=== PATIENT | female | born 1985 | race Caucasian/White ===

== ENCOUNTER 2019-12-21 17:55 | Observation (INO) ==
[2019-12-21] MEDS ORDERED: ZOFRAN INJ 4 MG VIAL IVP PRN (18:40)
[2019-12-21] MEDS ORDERED: NORCO 5/325 MG TAB PO PRN (18:40)
--- NOTE | 2019-12-21 18:59 | DR.H&P ---
H&P - History & Physical for Day of: H&P Date: 12/21/19 - Chief Complaint Chief Complaint: RIGHT UPPER ABDOMINAL PAIN, DARK BROWN URINE, NAUSEA & VOMITING - History of Present Illness History of Present Illness: PT IS 34 WF DIRECT ADMIT FROM DR ZAPATA OFFICE WITH CO NEW ONSET RIGHT UPPER ABDOMINAL PAIN WITH N/V SINCE WEDNESDAY. PT REPORTS ~5LBS WEIGHT LOSS DUE TO FOOD INTOLERANCE. PT CO URINE IS NOW DARK BROWN IN COLOR. PT HAD UA WITH BILIURIA, RIGHT UPPER ABDOMINA L TENDERNESS. PT DENIES ANY PMH OF DM OR HTN. PT DENIES ANY SYMPTOMS OF FEVER, CCC OR COVID 19 RESPIRATORY SYMPTOMS. PT HAD OUTPT LABS WITH ELEVATED LFT'S AND LIPASE. PT ADMITTED FOR TREATMENT OF ACUTE CHOLECYSTITIS, PANCREATITIS. - Past Medical History Past Medical History: denies: Diabetes, GERD, Hypertension - Family History Family Medical History: Diabetes Mellitus, Hypertension - Social History Does patient currently use any type of tobacco product: No Have you used tobacco products in the last 12 months: No Type of Tobacco Use: None Does any household member use tobacco: No Alcohol Use: None Drug Use: None Risks, benefits, and alternatives of opioids discussed: No - Review of Systems Constitutional: No Symptoms Reported Eyes: No Symptoms Reported ENT: No Symptoms Reported Respiratory: No Symptoms Reported Cardiovascular: No Symptoms Reported Gastrointestinal: Nausea, Vomiting, Abdominal Pain, Diarrhea Genitourinary: Other (DISCOLORED URINE) Musculoskeletal: Back Pain Skin: No Symptoms Reported Neurological: No Symptoms Reported Oriented: Normal Eyes: Normal Ear: Normal Nose: Normal Throat: Normal Respiratory: RLL Diminished, LLL Diminished Cardiovascular: Normal : Normal Palpation: Normal Tenderness: RUQ Skin: Decreased Turgur Psychiatric: Normal Mood Description: Calm - Assessment/Plan (1) Acute cholecystitis Status: Acute Plan: ADMIT, NPO AFTER MIDNIGHT. GB US, ACUTE HEPATITIS PAIN. PAIN AND NAUSEA CONTROL, IV HYDRATION. CONSULT DR DUENAS POST GB US RESULTS (2) Acute pancreatitis Status: Acute
[2019-12-21] MEDS ORDERED: PROTONIX INJ 40 MG VIAL ONE (20:30)
[2019-12-21] MEDS ORDERED: NS 1000 ML 1,000 ML ONE (20:30)
[2019-12-21] MEDS: PROTONIX INJ 40 MG VIAL IVP SCH (20:38)
[2019-12-21] MEDS: NS 1000 ML 1,000 ML IV SCH (20:38)
[2019-12-21 21:46] VITALS: BMI 26.6
[2019-12-21 23:08] LABS: BILIRUBIN,URINE 2+ (NEGATIVE); BLOOD/HEMOGLOBIN,URINE 5+ (NEGATIVE); GLUCOSE, URINE NEGATIVE (NEGATIVE); KETONES,URINE 3+ (NEGATIVE); LEUKOCYTE ESTERASE ,URINE 1+ (NEGATIVE); NITRITES,URINE NEGATIVE (NEGATIVE); PROTEIN,URINE 1+ (NEGATIVE); UROBILINOGEN,URINE 3+ (NORMAL)
[2019-12-21 23:11] LABS: APPEARANCE,URINE CLEAR (CLEAR); COLOR,URINE AMBER (YELLOW)
[2019-12-21 23:20] LABS: BACTERIA,URINE TRACE /HPF (NEGATIVE); CALCIUM OXALATE CRYSTALS,UR MANY /HPF (NEGATIVE); RBC,URINE 0-2 /HPF (0-3); SQUAMOUS EPITHELIAL CELL,UR FEW /HPF (NEGATIVE)
--- NOTE | 2019-12-22 05:57 | RAD ---
HISTORYRUQ PAIN HX: IBS SX: C-SECTIONSTUDYKUBCOMPARISONNoneFINDINGSEvaluation of the abdomen demonstrates a normal bowel gas manny demetra. No pathological soft tissue mass or calcification can be observed. The bony structures are ry ssly intact.IMPRESSIONNo evidence for acute abdominal pathology identified.Electronically signed by: ROLY STEELE (Dec 22, 2019 05:56:19)
[2019-12-22 06:06] LABS: ALANINE AMINOTRANSFERASE 245 Units/L (12-78); ALKALINE PHOSPHATASE 137 Units/L (46-116); AMYLASE 41 Units/L (25-115); ASPARTATE AMINO TRANSFERASE 94 Units/L (15-37); BLOOD UREA NITROGEN 9 mg/dL (7-18); CARBON DIOXIDE 26.3 mmol/L (21-32); CHLORIDE 109 mmol/L (98-107); COR CA(FOR HYPOALB) 8.8 mg/dL (8.5-10.1); CREATININE 0.76 mg/dL (0.55-1.02); LIPASE 304 Units/L (73-393); SODIUM 144 mmol/L (136-145); TOTAL PROTEIN 6.5 g/dL (6.4-8.2); eGFR NON BLACK RACES > 60 (>60)
[2019-12-22 06:15] LABS: BASOPHILS # (AUTO) 0.1 X10^3/uL (0.0-0.1); BASOPHILS % (AUTO) 0.9 % (0.2-1.0); EOSINOPHILS # (AUTO) 0.1 x10^3/uL (0.0-0.2); EOSINOPHILS % (AUTO) 1.5 % (0.9-2.9); HEMOGLOBIN 12.9 g/dL (12.0-16.0); LYMPHOCYTES # (AUTO) 1.6 X10^3/uL (1.3-2.9); LYMPHOCYTES % (AUTO) 29.6 % (21.0-51.0); MEAN CORPUSCULAR HEMOGLOBIN 29.6 pg (27.0-34.0); MEAN CORPUSCULAR HGB CONC 33.1 g/dL (33.0-35.0); MEAN CORPUSCULAR VOLUME 89.5 fL (80.0-100.0); MONOCYTES # (AUTO) 0.6 x10^3/uL (0.3-0.8); MONOCYTES % (AUTO) 10.5 % (0.0-13.0); NEUTROPHILS # (AUTO) 3.1 x10^3/uL (2.2-4.8); NEUTROPHILS % (AUTO) 57.5 % (42.0-75.0); PLATELET COUNT 388 X10^3/uL (150.0-450.0); RED BLOOD COUNT 4.35 X10^6/uL (3.5-5.4); RED CELL DISTRIBUTION WIDTH 14.1 % (11.6-16.5); WHITE BLOOD COUNT 5.4 X10^3/uL (3.6-10.0)
[2019-12-22] MEDS: NS 1000 ML 1,000 ML IV SCH ×2 (06:33→13:31)
[2019-12-22] MEDS: PROTONIX INJ 40 MG VIAL IVP SCH (08:08)
[2019-12-22] MEDS ORDERED: VERSED ONE (09:37)
[2019-12-22] MEDS ORDERED: QUELICIN (OR ANECTINE) ONE (09:37)
[2019-12-22] MEDS ORDERED: XYLOCAINE 2 % (PLAIN) ONE (09:37)
[2019-12-22] MEDS ORDERED: NEOSTIGMINE INJ ONE (09:37)
[2019-12-22] MEDS ORDERED: SUPRANE ONE (09:37)
[2019-12-22] MEDS ORDERED: LTA KIT LIDOCAINE 4% ONE (09:37)
[2019-12-22] MEDS ORDERED: NORCURON INJ 10 MG VIAL ONE (09:37)
[2019-12-22] MEDS ORDERED: ZOFRAN INJ 4 MG VIAL ONE (09:37)
[2019-12-22] MEDS ORDERED: ROBINUL ONE (09:37)
[2019-12-22] MEDS ORDERED: TORADOL 30 MG VIAL ONE (09:37)
--- NOTE | 2019-12-22 12:24 | US ---
HISTORYRUQ PAINSTUDYGALL BLADDERCOMPARISON[None.]TECHNIQUE[Right upper quadrant sonogram complete]FINDINGS[The liver appears echogenic and measures up to 15.2 cm. Portal vein has hepatopetal flow. Hepatic artery appears patent. Hepatic vein has normal flow.Multiple small cholelithiasis are present with posterior acoustic shadowing. A positive Howe's sign is noted. There is wall thickening of the gallbladder at 3-4 mm. Common duct normal at 4 mm.Right kidney measures 12 cm and appears within normal limits.]Pancreas is obscured by bowel gas.Proximal aorta measures normal.IMPRESSION[Cholelithiasis with wall thickening and positive Howe's sign suspicious for acute cholecystitis.Hepatic steatosis.]Electronically signed by: Stas Brewer (Dec 22, 2019 12:21:55)
[2019-12-22 12:39] LABS: SERUM PREGNANCY TEST, QUAL NEGATIVE <10 mIU/mL
[2019-12-22] MEDS: LEVAQUIN PREMIX IV 500 MG 500 MG/100 ML BAG IV SCH (12:49)
[2019-12-22] MEDS ORDERED: BACTROBAN TOPICAL OINT ONE (12:50)
[2019-12-22] MEDS ORDERED: FENTANYL INJ 250 mcg ONE (12:51)
[2019-12-22] MEDS ORDERED: DECADRON INJ ONE (12:51)
[2019-12-22] MEDS ORDERED: LR 1000 ML IV 1,000 ML IV ONE (13:31)
[2019-12-22] MEDS ORDERED: DILAUDID INJ IVP PRN ×2 (14:38→14:41)
[2019-12-22] MEDS ORDERED: PHENERGAN INJ 25 MG IM PRN (14:38)
[2019-12-22] MEDS ORDERED: REGLAN INJ 10 MG VIAL IVP PRN (14:38)
[2019-12-22] MEDS ORDERED: ZOFRAN INJ 4 MG VIAL IVP PRN (14:38)
[2019-12-22] MEDS ORDERED: BENADRYL INJ 50 MG VIAL IVP PRN (14:38)
[2019-12-22] MEDS: D5 1/2 NS 1000 ML 1,000 ML IV SCH (15:54)
[2019-12-22] MEDS: TORADOL 30 MG VIAL IVP PRN (20:35)
[2019-12-23] MEDS: D5 1/2 NS 1000 ML 1,000 ML IV SCH ×3 (01:00→09:23)
[2019-12-23] MEDS: TORADOL 30 MG VIAL IVP PRN ×2 (02:45→09:25)
[2019-12-23 06:31] LABS: BASOPHILS % (AUTO) 0.4 % (0.2-1.0); EOSINOPHILS % (AUTO) 0.1 % (0.9-2.9); HEMOGLOBIN 11.9 g/dL (12.0-16.0); LYMPHOCYTES # (AUTO) 1.1 X10^3/uL (1.3-2.9); LYMPHOCYTES % (AUTO) 13.9 % (21.0-51.0); MEAN CORPUSCULAR HEMOGLOBIN 29.7 pg (27.0-34.0); MEAN PLATELET VOLUME 8.1 fL (7.4-11.0); MONOCYTES # (AUTO) 0.7 x10^3/uL (0.3-0.8); NEUTROPHILS # (AUTO) 5.8 x10^3/uL (2.2-4.8); NEUTROPHILS % (AUTO) 76.6 % (42.0-75.0); PLATELET COUNT 315 X10^3/uL (150.0-450.0); WHITE BLOOD COUNT 7.5 X10^3/uL (3.6-10.0)
[2019-12-23 06:47] LABS: ALANINE AMINOTRANSFERASE 224 Units/L (12-78); ALBUMIN 2.5 g/dL (3.4-5.0); ALKALINE PHOSPHATASE 119 Units/L (46-116); ASPARTATE AMINO TRANSFERASE 104 Units/L (15-37); BLOOD UREA NITROGEN 7 mg/dL (7-18); CARBON DIOXIDE 25.1 mmol/L (21-32); CHLORIDE 107 mmol/L (98-107); COR CA(FOR HYPOALB) 9.2 mg/dL (8.5-10.1); COR NA(FOR HYPERGLY) 141 mmol/L (136-145); CREATININE 0.66 mg/dL (0.55-1.02); SODIUM 140 mmol/L (136-145); TOTAL PROTEIN 5.6 g/dL (6.4-8.2); eGFR NON BLACK RACES > 60 (>60)
[2019-12-23] MEDS ORDERED: POTASSIUM CHL 60 MEQ/NS 0.45% 500 ML IV PRN (08:48)
[2019-12-23] MEDS ORDERED: MAGNESIUM SULFATE 1 GRAM/100 mL PREMIX 1 GM/100 ML BAG IV PRN (08:48)
[2019-12-23] MEDS ORDERED: POTASSIUM CHL 40 MEQ/NS 0.45% 500 ML IV PRN (08:48)
[2019-12-23] MEDS ORDERED: K-RIDER 10 MEQ/NS 100 ML 10 MEQ/100 ML BAG IV PRN (08:48)
[2019-12-23] MEDS ORDERED: POTASSIUM CHLORIDE LIQ 20 MEQ UDC PO PRN (08:48)
[2019-12-23] MEDS ORDERED: K-DUR TAB 20 MEQ PO PRN (08:48)
[2019-12-23] MEDS ORDERED: KLOR-CON PO PRN (08:48)
[2019-12-23] MEDS ORDERED: MICRO K EXTEN CAP 10 MEQ PO PRN (08:48)
[2019-12-23] MEDS ORDERED: K-DUR TAB 20 MEQ PO ONE (08:59)
[2019-12-23] MEDS ORDERED: POTASSIUM CHLORIDE LIQ 20 MEQ UDC ONE (09:06)
[2019-12-23] MEDS: PROTONIX INJ 40 MG VIAL IVP SCH (09:23)
[2019-12-23] MEDS: LEVAQUIN PREMIX IV 500 MG 500 MG/100 ML BAG IV SCH (09:23)
[2019-12-23 12:25] VITALS: BP 135/81
[2019-12-25 06:32] LABS: HEPATITIS B SURFACE ANTIGEN Negative (Negative)
== END 2019-12-23 13:35 | disposition home or self-care (01) ==
LOC: MED/SURG
PROVIDERS: ADMIT Internal Medicine; ATTEND Internal Medicine
DX: K76.0 Fatty (change of) liver, not elsewhere classified; K82.8 Other specified diseases of gallbladder; K85.90 Acute pancreatitis without necrosis or infection, unspecified; R11.12 Projectile vomiting; K80.60 Calculus of gallbladder and bile duct with cholecystitis, unspecified, without obstruction; R94.5 Abnormal results of liver function studies; R10.11 Right upper quadrant pain
CPT/HCPCS: 36415; 74000; 74018; 76705; 80053; 80074; 81001; 82150; 83690; 84703; 85025; 96360; 96361; 96374; A4216; A4222; C9113; G0378; J0330; J1100; J1885; J1956; J2250; J2405; J2710; J3010; J3490; J7030; J7120; S5010

== ENCOUNTER 2024-11-06 12:01 | Inpatient (IN) ==
[2024-11-06] MEDS: DUONEB 0.5 MG/3 MG (3 mL) NEB SCH (12:46)
[2024-11-06] MEDS: NS 1,000 ML IV 1,000 ML IV SCH (13:00)
[2024-11-06] MEDS: ZITHROMAX INJ 500 MG VIAL 500 MG in NS 250 ML IV 250 ML IV SCH (13:01)
[2024-11-06] MEDS: LOVENOX INJ 40 MG SYR SC SCH (13:03)
[2024-11-06] MEDS: SOLU-Medrol 40 MG VIAL IVP SCH (13:04)
[2024-11-06] MEDS: PROTONIX INJ 40 MG VIAL IVP SCH (13:06)
[2024-11-06 13:30] LABS: MAGNESIUM 2.1 mg/dL (2.0-2.9)
--- NOTE | 2024-11-06 13:40 | DR.H&P ---
H&P History & Physical for Day of: H&P Date: 11/06/24 Chief Complaint Chief Complaint: SOB, HEART RACING, DRY COUGH History of Present Illness History of Present Illness: PT IS 39WF, DIRECT ADMIT FROM DR WARNER OFFICE DUE TO ABNORMAL OUTPT FINDINGS. PT CO ONSET SOB LAST WEEK. PT REPORTS SHE THOUGHT SHE HAD BRONCHITIS BECAUSE SHE RECENTLY STARTED SMOKING. PT DOES HAVE PMH OF ANEMIA AND MENORRHAGIA. 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 PT HR 134 IN OFFICE. PT STATES SHE HAS BEEN TAKING DUO NEBS WITH SOME IMPROVEMENT. PT OUTPT LABS REVEALED HYPOXIA ON ABG AND ELEVATED DDIMER. PT ADMITTED FOR EVALUATION AND TREATMENT OF ACUTE ILLNESS. Past Medical History Past Medical History: denies Diabetes, GERD or Hypertension Past Surgical History Surgical History: and Cholecystectomy Family History Family Medical History: Cancer Social History Does patient currently use any type of tobacco product: No Have you used tobacco products in the last 12 months: No Type of Tobacco Use: None Alcohol Use: None Drug Use: None Medications Home Medications: Home Medications Medication Instructions Recorded Confirmed Type albuterol sulfate 90 mcg/actuation 2 puff inhalation Q ID PRN 11/06/24 11/06/24 History aerosol inhaler metoprolol tartrate 25 mg tablet 25 mg PO BID 11/06/24 11/06/24 History pantoprazole 40 mg tablet,delayed 40 mg PO QDAY 11/06/24 History release Allergies Allergies Allergy/AdvReac Type Severity Reaction Status Date / Time No Known Drug Allergies Allergy Verified 12/21/19 21:40 Review of Systems Constitutional: Weakness Eyes: No Symptoms Reported ENT: No Symptoms Reported Respiratory: Shortness of Breath Cardiovascular: Palpitations Gastrointestinal: No Symptoms Reported Genitourinary: No Symptoms Reported Musculoskeletal: No Symptoms Reported Skin: No Symptoms Reported Neurological: No Symptoms Reported Physical Exam Vital Signs: Vital Signs Temperature 97.6 F Pulse Rate [Left Radial] 123 Pulse Rate 123 Respiratory Rate 20 Respiratory Rate 20 Blood Pressure [Right Arm] 122/86 Blood Pressure 135/81 Blood Pressure 135/81 O2 Sat by Pulse Oximetry 97 O2 Sat by Pulse Oximetry 96 Oriented: Normal Eyes: Normal Ear: Normal Nose: Normal Throat: Dry Respiratory: Diminished Throughout Cardiovascular: Tachycardia and Edema Auscultation: Bowel Sounds: Normal Tenderness: Normal Skin: Normal Musculoskeletal: Normal Psychiatric: Anxiety Mood Description: Anxious Affect: Anxious Speech Pattern: Clear and Appropriate Assessment/Plan (1) SOB (shortness of breath) on exertion: Status: Acute Plan: ADMIT, RESP CONSULT SUPPLEMENTAL O2, CARDIAC MONITORING CTA CHEST RO PE, IV SOLU MEDROL AND IV ATBX (2) Acute bronchitis: Status: Acute (3) Anemia: Status: Acute
[2024-11-06 13:57] LABS: BILIRUBIN,URINE NEGATIVE (NEGATIVE); BLOOD/HEMOGLOBIN,URINE NEGATIVE (NEGATIVE); GLUCOSE, URINE NEGATIVE (NEGATIVE); KETONES,URINE 1+ (NEGATIVE); LEUKOCYTE ESTERASE ,URINE 1+ (NEGATIVE); NITRITES,URINE NEGATIVE (NEGATIVE); PROTEIN,URINE 2+ (NEGATIVE); UROBILINOGEN,URINE NORMAL (NORMAL)
[2024-11-06 14:05] LABS: APPEARANCE,URINE SLIGHTLY HAZY (CLEAR); BACTERIA,URINE 1+ /HPF (NEGATIVE); COLOR,URINE YELLOW (YELLOW); RBC,URINE 0-2 /HPF (0-3); SQUAMOUS EPITHELIAL CELL,UR RARE /HPF (NEGATIVE)
--- NOTE | 2024-11-06 14:54 | CT ---
EXAMINATION: CTA, CHEST HISTORY: > D-DIMER , HYPOXIA; . COMPARISON: None. TECHNIQUE: Routine axial imaging of the chest was performed. CT angiography of the pulmonary arteries was performed with maximum intensity projection images and volume rendered images on a workstation. The above CT scan was done with automated exposure control and the mA and kV was adjusted to obtain quality gee ges according to patient size. FINDINGS: Lungs: Dependent atelectasis. No acute infiltrates, suspicious pulmonary nodules, interstitial changes or ground-glass opacities. Central Airways: No obstructing endobronchial lesions Pleura: No pleural effusion or pneumothorax Thoracic Aorta: Ectasia. No dissection. Main Pulmonary Trunk: Enlarged measuring 3.7 cm suggesting pulmonary arterial hypertension. There is pulmonary embolus in segmental and subsegmental branches to the upper lobes, right middle lobe, lingula and lower lobes. No saddle embolus or right heart strain Lymph Nodes: No pathologic hilar, axillary or mediastinal adenopathy Heart/Pericardium: Normal heart size. No pericardial effusion Liver: Fatty liver. No acute findings. GB/Biliary: Cholecystectomy. No dilated ducts Spleen: Normal size and density Pancreas: No acute findings as visualized Adrenal Glands: No mass Kidneys no hydronephrosis. Abdominal Aorta: Tapers and enhances normally. Retroperitoneum: No pathologically enlarged lymph nodes Bowel/Peritoneal Cavity: No acute findings as visualized Osseous Structures: Degenerative changes in the thoracolumbar spine. No acute findings or bony lesions. Other: None IMPRESSION: There is acute pulmonary embolus in the segmental and subsegmental branches of the upper lobes, right middle lobe, lingula and lower lobe branches. No CTA evidence for saddle embolus or right heart strain. No CTA evidence for aortic aneurysm or dissection. The above CT scan was done with automated exposure control and the mA and kV was adjusted to obtain quality images according to patient size THIS IS AN ELECTRONICALLY VERIFIED FINAL REPORT 11/06/2024 2:51 PM - Electronically signed by Jose Borges MD
[2024-11-06] MEDS: NS 100 ML IV 100 ML with VENOFER 400 MG IV ONE (15:42)
[2024-11-06] MEDS: HEMOCYTE PLUS PO SCH (15:43)
[2024-11-06] MEDS: HEPARIN SODIUM IN D5W 25,000 UNITS/500 ML BAG IV PRN (16:23)
[2024-11-06] MEDS: OMNIPAQUE 350 mg/mL 100 mL BTL 100 ML ONE (16:26)
[2024-11-06] MEDS: DUONEB 0.5 MG/3 MG (3 mL) NEB ONE (16:26)
[2024-11-06] MEDS: VITAMIN B-12 INJ IM ONE (16:33)
[2024-11-06 16:51] LABS: HEMATOCRIT 29.2 % (36.0-47.0); HEMOGLOBIN 8.2 g/dL (12.0-16.0)
[2024-11-06 16:59] LABS: INR 1.17 (0.8-1.3)
--- NOTE | 2024-11-06 17:10 | VAS ---
EXAM: LOWER EXT VENOUS, UNILATERAL HISTORY: LLE SWELLING, PAIN; LLE SWELLING/PAIN COMPARISON: None. TECHNIQUE: G rayscale and color Doppler imaging of the left lower extremity using compression and augmentation techniques focused to the deep venous system. FINDINGS: The study is positive for DVT within a segment of the left popliteal vein. This segment demonstrates near occlusive thrombus with abnormal compressibility and augmentation of flow. Flow is demonstrated below this level of interest within the posterior tibial vein and above the popliteal vein, flow is seen within the superficial femoral vein segments and common femoral vein respectively. Normal flow is also demonstrated at the common femoral vein-greater saphenous vein junction. IMPRESSION: The study is positive for DVT within the left lower extremity-popliteal vein segment. THIS IS AN ELECTRONICALLY VERIFIED FINAL REPORT 11/06/2024 5:06 PM - Electronically signed by Scot Johnson MD
[2024-11-06] MEDS: HEPARIN SODIUM INJ 5000 UNITS IVP ONE (17:16)
[2024-11-06] MEDS: PULMICORT NEB TX 0.5 MG NEB SCH (21:55)
[2024-11-07 04:50] LABS: BASOPHILS % (AUTO) 0.2 % (0.2-1.0); MEAN CORPUSCULAR HGB CONC 28.8 g/dL (33.0-35.0); MONOCYTES # (AUTO) 0.3 x10^3/uL (0.3-0.8); NEUTROPHILS # (AUTO) 12.1 x10^3/uL (2.2-4.8)
[2024-11-07 05:05] LABS: ALANINE AMINOTRANSFERASE 23 Units/L (12-78); ALBUMIN 3.3 g/dL (3.4-5.0); ALKALINE PHOSPHATASE 101 Units/L (46-116); ASPARTATE AMINO TRANSFERASE 10 Units/L (15-37); BLOOD UREA NITROGEN 15 mg/dL (7-18); CALCIUM 8.4 mg/dL (8.5-10.1); CARBON DIOXIDE 21.8 mmol/L (21-32); CHLORIDE 106 mmol/L (98-107); COR NA(FOR HYPERGLY) 142 mmol/L (136-145); CREATININE 0.63 mg/dL (0.55-1.02); GLUCOSE 150 mg/dL (65-99); MAGNESIUM 2.2 mg/dL (2.0-2.9); POTASSIUM 3.8 mmol/L (3.5-5.1); SODIUM 141 mmol/L (136-145); TOTAL PROTEIN 8.1 g/dL (6.4-8.2); eGFR NON BLACK RACES > 60 (>60)
[2024-11-07 05:39] LABS: HEMOGLOBIN 7.5 g/dL (12.0-16.0); LYMPHOCYTES # (AUTO) 0.8 X10^3/uL (1.3-2.9); LYMPHOCYTES % (AUTO) 5.7 % (21.0-51.0); MEAN PLATELET VOLUME 8.3 fL (7.4-11.0); MONOCYTES % (AUTO) 2.3 % (0.0-13.0); NEUTROPHILS % (AUTO) 91.8 % (42.0-75.0); PLATELET COUNT 436 X10^3/uL (150.0-450.0); RED BLOOD COUNT 4.41 X10^6/uL (3.5-5.4); RED CELL DISTRIBUTION WIDTH 20.1 % (11.6-16.5); WHITE BLOOD COUNT 13.1 X10^3/uL (3.6-10.0)
[2024-11-07] MEDS: HEPARIN SODIUM INJ 5000 UNITS IVP ONE (05:49)
[2024-11-07 05:55] LABS: PLATELET MORPHOLOGY COMMENT NORMAL (NORMAL)
[2024-11-07 05:56] LABS: ANISOCYTOSIS 1+; HYPOCHROMASIA 3+; MICROCYTOSIS 3+
--- NOTE | 2024-11-07 08:08 | VAS ---
EXAM: UPPER EXT VENOUS, BILAT HISTORY: BILATERAL PE'S; KAMILAH PES, DVT LEFT POPV COMPARISON: None. TECHNIQUE: Bilateral upper extremity venous Doppler ultrasound was performed using grayscale and color Doppler imaging with compression and augmentation techniques. FINDINGS: With respect to the interrogated segments of the bilateral upper extremity venous system, there is normal color Doppler flow within the internal jugular, subclavian, axillary, brachial, radial and ulnar vein segments. The deep vessels augment and compress normally, where appropriate. There is no DVT identified. IMPRESSION: No evidence of DVT. THIS IS AN ELECTRONICALLY VERIFIED FINAL REPORT 11/07/2024 8:05 AM - Electronically signed by Scot Johnson MD
[2024-11-07 09:03] LABS: ABG HCO3 18.2 mmol/L (22-26)
[2024-11-07] MEDS: VITAMIN B-12 PO SCH (10:00)
[2024-11-07] MEDS: LOPRESSOR TAB 25 MG PO SCH (10:00)
[2024-11-07] MEDS ORDERED: NS 500 ML IV 500 ML IV ONE (15:25)
[2024-11-07] MEDS ORDERED: HEPARIN SODIUM INJ 5000 UNITS IVP ONE (18:05)
[2024-11-07 19:34] LABS: HEMOGLOBIN 8.2 g/dL (12.0-16.0)
[2024-11-07 19:40] LABS: HEMATOCRIT 28.4 % (36.0-47.0)
[2024-11-07] MEDS: ELIQUIS PO SCH (20:05)
[2024-11-08 05:15] LABS: ALANINE AMINOTRANSFERASE 21 Units/L (12-78); ALBUMIN 3.2 g/dL (3.4-5.0); ALKALINE PHOSPHATASE 86 Units/L (46-116); ASPARTATE AMINO TRANSFERASE 9 Units/L (15-37); BLOOD UREA NITROGEN 20 mg/dL (7-18); CALCIUM 8.2 mg/dL (8.5-10.1); CHLORIDE 108 mmol/L (98-107); COR CA(FOR HYPOALB) 8.8 mg/dL (8.5-10.1); CREATININE 0.76 mg/dL (0.55-1.02); GLUCOSE 102 mg/dL (65-99); POTASSIUM 3.4 mmol/L (3.5-5.1); SODIUM 143 mmol/L (136-145); TOTAL PROTEIN 7.3 g/dL (6.4-8.2); eGFR NON BLACK RACES > 60 (>60)
[2024-11-08 05:23] LABS: BASOPHILS % (AUTO) 0.5 % (0.2-1.0); EOSINOPHILS % (AUTO) 0.1 % (0.9-2.9); HEMATOCRIT 26.4 % (36.0-47.0); HEMOGLOBIN 7.8 g/dL (12.0-16.0); LYMPHOCYTES # (AUTO) 2.3 X10^3/uL (1.3-2.9); LYMPHOCYTES % (AUTO) 22.5 % (21.0-51.0); MEAN CORPUSCULAR HEMOGLOBIN 18.6 pg (27.0-34.0); MEAN CORPUSCULAR HGB CONC 29.5 g/dL (33.0-35.0); MEAN CORPUSCULAR VOLUME 62.9 fL (80.0-100.0); MEAN PLATELET VOLUME 8.4 fL (7.4-11.0); MONOCYTES # (AUTO) 0.7 x10^3/uL (0.3-0.8); MONOCYTES % (AUTO) 6.4 % (0.0-13.0); NEUTROPHILS # (AUTO) 7.4 x10^3/uL (2.2-4.8); NEUTROPHILS % (AUTO) 70.5 % (42.0-75.0); PLATELET COUNT 397 X10^3/uL (150.0-450.0); RED CELL DISTRIBUTION WIDTH 22.1 % (11.6-16.5); WHITE BLOOD COUNT 10.4 X10^3/uL (3.6-10.0)
[2024-11-08 05:39] LABS: CARBON DIOXIDE 24.3 mmol/L (21-32)
[2024-11-08 06:05] LABS: ANISOCYTOSIS 2+; HYPOCHROMASIA 3+; MICROCYTOSIS 2+; PLATELET MORPHOLOGY COMMENT NORMAL (NORMAL)
[2024-11-08 06:06] LABS: OVALOCYTES PRESENT; SCHISTOCYTES PRESENT
[2024-11-08] MEDS ORDERED: CONSULT PHARMACY - POTASSIUM & MAGNESIUM XX SCH (07:00)
[2024-11-08] MEDS: GLUCOPHAGE XR 24-HR PO SCH (09:08)
[2024-11-08] MEDS: K-DUR TAB 20 MEQ PO SCH (09:08)
--- NOTE | 2024-11-08 15:18 | US ---
EXAM: THYROID ULTRASOUND HISTORY: ABNORMAL THYROID LEVELS; COMPARISON: None. TECHNIQUE: Ultrasound of the thyroid was performed. Color doppler imaging was utilized. FINDINGS: SIZE: Right Lobe: 4.6 x 2.3 x 1.8 cm Left Lobe: 4.8 x 1.4 x 1.3 cm Isthmus: 0.8 cm PARENCHYMA: Mildly heterogeneous parenchyma. No discrete thyroid nodule identified. IMPRESSION: Mild heterogeneous thyroid parenchyma, suggestive of acute or chronic thyroiditis. No discrete thyroid nodule identified. THIS IS AN ELECTRONICALLY VERIFIED FINAL REPORT 11/08/2024 3:15 PM - Electronically signed by Can Zamora MD
[2024-11-09 05:21] VITALS: O2SAT 96
[2024-11-09 05:30] LABS: BASOPHILS # (AUTO) 0.1 X10^3/uL (0.0-0.1); BASOPHILS % (AUTO) 1.5 % (0.2-1.0); EOSINOPHILS # (AUTO) 0.1 x10^3/uL (0.0-0.2); EOSINOPHILS % (AUTO) 0.8 % (0.9-2.9); HEMATOCRIT 29.7 % (36.0-47.0); HEMOGLOBIN 8.7 g/dL (12.0-16.0); LYMPHOCYTES # (AUTO) 2.3 X10^3/uL (1.3-2.9); LYMPHOCYTES % (AUTO) 26.4 % (21.0-51.0); MEAN CORPUSCULAR HEMOGLOBIN 18.8 pg (27.0-34.0); MEAN CORPUSCULAR HGB CONC 29.4 g/dL (33.0-35.0); MEAN PLATELET VOLUME 8.3 fL (7.4-11.0); MONOCYTES # (AUTO) 0.7 x10^3/uL (0.3-0.8); MONOCYTES % (AUTO) 7.5 % (0.0-13.0); NEUTROPHILS # (AUTO) 5.6 x10^3/uL (2.2-4.8); NEUTROPHILS % (AUTO) 63.8 % (42.0-75.0); PLATELET COUNT 395 X10^3/uL (150.0-450.0); RED BLOOD COUNT 4.64 X10^6/uL (3.5-5.4); RED CELL DISTRIBUTION WIDTH 22.1 % (11.6-16.5); WHITE BLOOD COUNT 8.8 X10^3/uL (3.6-10.0)
[2024-11-09 05:35] LABS: ALANINE AMINOTRANSFERASE 25 Units/L (12-78); ALBUMIN 3.4 g/dL (3.4-5.0); ALKALINE PHOSPHATASE 92 Units/L (46-116); ASPARTATE AMINO TRANSFERASE 14 Units/L (15-37); BLOOD UREA NITROGEN 18 mg/dL (7-18); CALCIUM 8.4 mg/dL (8.5-10.1); CARBON DIOXIDE 24.9 mmol/L (21-32); CHLORIDE 110 mmol/L (98-107); CREATININE 0.72 mg/dL (0.55-1.02); GLUCOSE 87 mg/dL (65-99); POTASSIUM 3.3 mmol/L (3.5-5.1); SODIUM 144 mmol/L (136-145); TOTAL PROTEIN 7.7 g/dL (6.4-8.2); eGFR NON BLACK RACES > 60 (>60)
[2024-11-09 06:03] LABS: ANISOCYTOSIS 2+; HYPOCHROMASIA 3+; MICROCYTOSIS 2+; PLATELET MORPHOLOGY COMMENT NORMAL (NORMAL)
[2024-11-09 06:16] LABS: OVALOCYTES PRESENT
[2024-11-09] MEDS ORDERED: CONSULT PHARMACY - POTASSIUM & MAGNESIUM XX SCH (07:00)
--- NOTE | 2024-11-09 07:53 | RAD ---
EXAM: CHEST, 1 VIEW HISTORY: HYPOXIA; COMPARISON: 1 TECHNIQUE: AP portable FINDINGS: Unremarkable cardiac silhouette. No focal consolidation, pleural effusion, or pneumothorax. IMPRESSION: No acute cardiopulmonary findings. THIS IS AN ELECTRONICALLY VERIFIED FINAL REPORT 11/09/2024 7:49 AM - Electronically signed by Can Zamora MD
[2024-11-09 09:48] VITALS: BP 131/78; PULSE 121; TEMP 98.4
[2024-11-09] MEDS: K-DUR TAB 20 MEQ PO SCH (10:05)
[2024-11-09 10:25] VITALS: RESP 29
== END 2024-11-09 12:15 | disposition home or self-care (01) | DRG 202 ==
LOC: MED/SURG → OBSVTOIN 12:07 → ICU 15:35
PROVIDERS: ADMIT Internal Medicine; ATTEND Internal Medicine
DX: R79.1 Abnormal coagulation profile; I82.432 Acute embolism and thrombosis of left popliteal vein; Z72.0 Tobacco use; I10 Essential (primary) hypertension; Z68.41 Body mass index [BMI] 40.0-44.9, adult; I26.99 Other pulmonary embolism without acute cor pulmonale; F41.8 Other specified anxiety disorders; R60.0 Localized edema; E66.01 Morbid (severe) obesity due to excess calories; E11.65 Type 2 diabetes mellitus with hyperglycemia; R00.0 Tachycardia, unspecified; B95.61 Methicillin susceptible Staphylococcus aureus infection as the cause of diseases classified elsewhere; J20.8 Acute bronchitis due to other specified organisms; K21.9 Gastro-esophageal reflux disease without esophagitis; Z16.29 Resistance to other single specified antibiotic; D50.0 Iron deficiency anemia secondary to blood loss (chronic); R53.1 Weakness; R09.02 Hypoxemia; N92.0 Excessive and frequent menstruation with regular cycle